=== PATIENT | female | born 1955 | race Caucasian/White ===

== ENCOUNTER 2017-10-11 16:27 | Inpatient (IN) | payer MEDICAID ==
[2017-10-11] MEDS: SODIUM CHLORIDE 0.9% FLUSH 10 ML SOL IV PRN ×2 (16:45→19:42)
[2017-10-11] MEDS ORDERED: SODIUM CHLORIDE 0.9% 1000ML 1,000 ML IV ONE (16:49)
[2017-10-11 17:04] LABS: ALBUMIN 3.8 gm/dl (3.4-5.0); CALCIUM 9.8 mg/dl (8.5-10.1); MAGNESIUM 1.9 mg/dl (1.8-2.4); POTASSIUM 4.2 mMol/L (3.5-5.1)
[2017-10-11 17:07] LABS: AMPHETAMINES NEGATIVE (NEGATIVE); METHADONE NEGATIVE (NEGATIVE); OPIATES(OP13) NEGATIVE (NEGATIVE); OXYCODONE(OXY) POSITIVE (NEGATIVE); PROPOXYPHENE(PPX) NEGATIVE (NEGATIVE); TRICYCLIC ANTIDEPRESSANTS NEGATIVE (NEGATIVE)
[2017-10-11 17:10] LABS: BASOPHILS % (AUTO) 2 % (0-3); EOSINOPHILS % (AUTO) 3 % (0-9); HEMATOCRIT 44 % (35-47); MEAN CORPUSCULAR HGB CONC 34.3 gm/dl (32.0-36.0); MONOCYTES % (AUTO) 5.9 % (0-12); NEUTROPHILS % (AUTO) 58.5 % (37-80)
[2017-10-11 17:14] LABS: MEAN CORPUSCULAR VOLUME 100 fL (81-99)
[2017-10-11] MEDS ORDERED: ACETYLCYSTEINE 20% SOL ONE ×2 (17:26→17:32)
[2017-10-11] MEDS ORDERED: ONDANSETRON HCL 4 MG/2 ML SOL IV ONE (17:31)
[2017-10-11] MEDS ORDERED: ACETYLCYSTEINE 20% SOL PO ONE ×2 (17:31)
[2017-10-11] MEDS ORDERED: ONDANSETRON HCL 4 MG/2 ML SOL ONE (17:32)
[2017-10-11] MEDS ORDERED: ONDANSETRON HCL 4 MG/2 ML SOL IV PRN (18:27)
[2017-10-11] MEDS: VENLAFAXINE HCL 150 MG CER PO SCH (18:57)
[2017-10-11] MEDS ORDERED: POTASSIUM CHLORIDE 2 MEQ/ML SOL IV ONE (19:36)
[2017-10-11] MEDS: POTASSIUM CHLORIDE IV SCH (19:41)
[2017-10-11] MEDS: SODIUM CHLORIDE IV SCH (19:41)
[2017-10-11] MEDS: KETOROLAC TROMETHAMINE 30 MG/ML SOL IV PRN ×2 (19:42→23:53)
[2017-10-11] MEDS ORDERED: RANITIDINE HCL 150 MG TAB PO SCH (21:00)
[2017-10-11] MEDS: ACETYLCYSTEINE 20% SOL PO SCH (21:52)
[2017-10-11] MEDS: BUPROPION 150 MG PO SCH (22:27)
[2017-10-12] MEDS: ACETYLCYSTEINE 20% SOL PO SCH ×6 (02:01→21:59)
[2017-10-12] MEDS: KETOROLAC TROMETHAMINE 30 MG/ML SOL IV PRN ×5 (04:09→20:48)
[2017-10-12] MEDS: POTASSIUM CHLORIDE IV SCH (05:51)
[2017-10-12] MEDS: SODIUM CHLORIDE IV SCH (05:51)
[2017-10-12] MEDS ORDERED: POTASSIUM CHLORIDE 2 MEQ/ML SOL IV ONE (05:51)
[2017-10-12] MEDS: FAMOTIDINE 20 MG TAB PO SCH ×2 (06:01→16:32)
[2017-10-12] MEDS: SODIUM CHLORIDE 0.9% FLUSH 10 ML SOL IV PRN ×4 (08:21→20:52)
[2017-10-12] MEDS: PANTOPRAZOLE SODIUM 40 MG ECT PO SCH (08:37)
[2017-10-12] MEDS: VENLAFAXINE HCL 150 MG CER PO SCH (08:37)
[2017-10-12] MEDS: LISINOPRIL 20 MG TAB PO SCH (10:34)
[2017-10-12] MEDS: BUPROPION 150 MG PO SCH ×2 (12:04→20:48)
[2017-10-12 13:53] LABS: ALBUMIN 3.1 gm/dl (3.4-5.0); ALT 21 IU/L (14-63); BILIRUBIN,DIRECT 0.1 mg/dl (0.0-0.2)
[2017-10-13] MEDS: KETOROLAC TROMETHAMINE 30 MG/ML SOL IV PRN ×3 (00:55→09:57)
[2017-10-13 01:01] VITALS: O2SAT 99
[2017-10-13] MEDS: ACETYLCYSTEINE 20% SOL PO SCH ×2 (01:13→05:46)
[2017-10-13] MEDS: FAMOTIDINE 20 MG TAB PO SCH (06:00)
[2017-10-13 08:04] LABS: ALBUMIN 3.2 gm/dl (3.4-5.0); CALCIUM 9.1 mg/dl (8.5-10.1); POTASSIUM 3.8 mMol/L (3.5-5.1)
[2017-10-13 08:06] LABS: BASOPHILS % (AUTO) 1 % (0-3); EOSINOPHILS % (AUTO) 1 % (0-9); HEMATOCRIT 40 % (35-47); MEAN CORPUSCULAR HGB CONC 35.7 gm/dl (32.0-36.0); MEAN CORPUSCULAR VOLUME 98 fL (81-99); MONOCYTES % (AUTO) 7.6 % (0-12); NEUTROPHILS % (AUTO) 63.8 % (37-80)
[2017-10-13] MEDS: VENLAFAXINE HCL 150 MG CER PO SCH (08:14)
[2017-10-13] MEDS: PANTOPRAZOLE SODIUM 40 MG ECT PO SCH (08:15)
[2017-10-13] MEDS: BUPROPION 150 MG PO SCH (08:16)
[2017-10-13] MEDS: LISINOPRIL 20 MG TAB PO SCH (08:16)
[2017-10-13 08:33] LABS: ANISOCYTOSIS SLIGHT AMT
[2017-10-13 08:37] VITALS: BP 165/79; PULSE 60; RESP 18; TEMP 98.1
[2017-10-13] MEDS ORDERED: FLUTICASONE PROPIONATE SPR NAS SCH (09:00)
[2017-10-13] MEDS ORDERED: INFLUENZA VIRUS VACCINE 0.5 ML SUS IM ONE (09:18)
== END 2017-10-13 10:00 | disposition home or self-care (01) | DRG 918 ==
LOC: ED 16:27 → UNDOADMIN 18:19 → ACUTE CARE 18:19
PROVIDERS: ADMIT Family Medicine; ATTEND Family Medicine
DX: T39.1X1A Poisoning by 4-Aminophenol derivatives, accidental (unintentional), initial encounter (principal); F32.9 Major depressive disorder, single episode, unspecified; R10.11 Right upper quadrant pain; R10.12 Left upper quadrant pain; R10.13 Epigastric pain; R51 Headache; R10.32 Left lower quadrant pain
CPT/HCPCS: 74020; 74177; 80053; 80076; 80305; 80307; 83735; 84100; 85025; 85610; 90686; 93005; 93012; 99285; J1885; J2405; J3480; J7608; Q9967; G0008

== ENCOUNTER 2017-11-30 16:31 | Emergency (ER) | payer MEDICAID ==
[2017-11-30 16:31] VITALS: O2SAT 99
[2017-11-30] MEDS ORDERED: TRAMADOL HYDROCHLORIDE 50 MG TAB PO ONE (17:08)
[2017-11-30] MEDS ORDERED: TRAMADOL HYDROCHLORIDE 50 MG TAB ONE (17:22)
[2017-11-30 18:04] VITALS: BP 154/99; PULSE 71; RESP 18; TEMP 97.5
== END 2017-11-30 18:25 | disposition home or self-care (01) | DRG 605 ==
LOC: ED 16:31
DX: S80.02XA Contusion of left knee, initial encounter (principal); Z96.652 Presence of left artificial knee joint; W20.8XXA Other cause of strike by thrown, projected or falling object, initial encounter
CPT/HCPCS: 73562; 99282; A9270-GY

== ENCOUNTER 2017-12-26 12:06 | Emergency (ER) | payer MEDICAID ==
[2017-12-26 12:47] VITALS: RESP 20
[2017-12-26 14:51] LABS: BASOPHILS % (AUTO) 1 % (0-3); EOSINOPHILS % (AUTO) 3 % (0-9); HEMATOCRIT 41 % (35-47); MEAN CORPUSCULAR HGB CONC 34.4 gm/dl (32.0-36.0); MONOCYTES % (AUTO) 5.6 % (0-12); NEUTROPHILS % (AUTO) 58.6 % (37-80)
[2017-12-26 14:56] VITALS: TEMP 97.9; O2SAT 99
[2017-12-26 14:56] LABS: CALCIUM 9.9 mg/dl (8.5-10.1); POTASSIUM 4.5 mMol/L (3.5-5.1)
[2017-12-26 15:14] LABS: MEAN CORPUSCULAR VOLUME 102 fL (81-99)
[2017-12-26 15:15] LABS: ANISOCYTOSIS SLIGHT AMT
[2017-12-26 15:33] VITALS: BP 156/84; PULSE 61
[2017-12-26] MEDS ORDERED: APAP/HYDROCODONE 325/5 TAB PO ONE (15:40)
[2017-12-26] MEDS ORDERED: APAP/HYDROCODONE 325/5 TAB ONE (15:46)
== END 2017-12-26 16:08 | disposition home or self-care (01) | DRG 301 ==
LOC: ED 12:06
DX: I82.442 Acute embolism and thrombosis of left tibial vein (principal); M25.562 Pain in left knee; Z98.84 Bariatric surgery status; Z96.652 Presence of left artificial knee joint; Z91.81 History of falling
CPT/HCPCS: 36415; 80048; 85025; 85378; 85610; 99284; A9270-GY

== ENCOUNTER 2018-02-10 14:48 | Emergency (ER) | payer OTHER ==
[2018-02-10 15:15] VITALS: RESP 20; TEMP 97.3; O2SAT 97
[2018-02-10 15:57] VITALS: BP 189/98; PULSE 54
== END 2018-02-10 15:50 | disposition home or self-care (01) | DRG 552 ==
LOC: ED 14:48
DX: M43.6 Torticollis (principal)
CPT/HCPCS: 99283

== ENCOUNTER 2018-05-06 14:56 | Emergency (ER) | payer OTHER ==
[2018-05-06 15:12] VITALS: RESP 22; TEMP 95.5
[2018-05-06 17:05] VITALS: BP 156/84; PULSE 64; O2SAT 99
== END 2018-05-06 17:10 | disposition home or self-care (01) | DRG 605 ==
LOC: ED 14:56
DX: S90.122A Contusion of left lesser toe(s) without damage to nail, initial encounter (principal)
CPT/HCPCS: 73660; 99282; 99283

== ENCOUNTER 2018-05-13 17:37 | Emergency (ER) | payer OTHER ==
[2018-05-13] MEDS ORDERED: ALBUTEROL/IPRATROPIUM 1 VIAL SOL ONE (17:53)
[2018-05-13 17:56] LABS: ABG PH 7.72 (7.35-7.45)
[2018-05-13] MEDS ORDERED: SOLUMEDROL 125 MG/2 ML 125 MG/2 ML PDS IV ONE (17:59)
[2018-05-13] MEDS ORDERED: ALBUTEROL/IPRATROPIUM 1 VIAL SOL INH ONE (17:59)
[2018-05-13 18:01] LABS: HEMATOCRIT 53 % (35-47); HEMOGLOBIN 17.8 gm/dl (12.0-15.5); MEAN CORPUSCULAR HGB CONC 33.6 gm/dl (32.0-36.0); MEAN CORPUSCULAR VOLUME 98 fL (81-99)
[2018-05-13] MEDS ORDERED: LORAZEPAM 2 MG/ML 10ML MDV 2 MG/ML VIAL IV ONE (18:01)
[2018-05-13] MEDS ORDERED: SOLUMEDROL 125 MG/2 ML 125 MG/2 ML PDS ONE (18:05)
[2018-05-13] MEDS ORDERED: LORAZEPAM 2 MG/ML SOL ONE (18:05)
[2018-05-13 18:21] LABS: ALBUMIN 4.3 gm/dl (3.4-5.0); BILIRUBIN,TOTAL 0.4 mg/dl (0.2-1.0); CALCIUM 10.9 mg/dl (8.5-10.1); CARBON DIOXIDE 26.4 mEq/L (21-32); CREATININE 0.74 mg/dl (0.60-1.00); POTASSIUM 4.1 mMol/L (3.5-5.1); TOTAL PROTEIN 8.1 gm/dl (6.4-8.2)
[2018-05-13 18:44] LABS: ANISOCYTOSIS SLIGHT; BAND NEUTROPHILS % (MANUAL) 1 %; BASOPHILS % (MANUAL) 0 % (0-3); EOSINOPHILS % (MANUAL) 0 % (0-9); LYMPHOCYTES % (MANUAL) 29 % (10-50); MONOCYTES % (MANUAL) 7 % (0-12); NEUTROPHILS % (MANUAL) 63 % (37-80)
[2018-05-13 19:52] VITALS: RESP 20
[2018-05-13] MEDS ORDERED: HYDROMORPHONE HCL 2 MG/ML SOL IV ONE (20:22)
[2018-05-13] MEDS ORDERED: HYDROMORPHONE 1 MG/ML SYRINGE ONE (20:25)
[2018-05-13 21:08] VITALS: BP 155/69; PULSE 62; TEMP 97.3; O2SAT 95
== END 2018-05-13 21:20 | disposition home or self-care (01) | DRG 204 ==
LOC: ED 17:37
DX: R06.00 Dyspnea, unspecified (principal); R06.02 Shortness of breath; R07.9 Chest pain, unspecified; R05 Cough; I10 Essential (primary) hypertension; Z72.0 Tobacco use
CPT/HCPCS: 36600; 71045; 71275; 80053; 82803; 83880; 84484; 85007; 85027; 85378; 93005; 96374; 96375; 99285; 99291; J2060; J2930; Q9967; J1170

== ENCOUNTER 2018-06-21 14:08 | Emergency (ER) | payer OTHER ==
[2018-06-21 14:30] VITALS: BP 194/91; PULSE 81; RESP 16; TEMP 98.3; O2SAT 98
[2018-06-21] MEDS ORDERED: KETOROLAC TROMETHAMINE 30 MG/ML SOL IM ONE (14:32)
[2018-06-21] MEDS ORDERED: KETOROLAC TROMETHAMINE 30 MG/ML SOL ONE (14:34)
== END 2018-06-21 14:55 | disposition home or self-care (01) | DRG 605 ==
LOC: ED 14:08
DX: S60.221A Contusion of right hand, initial encounter (principal)
CPT/HCPCS: 96372; 99282; 99283; J1885

== ENCOUNTER 2018-09-13 11:29 | Emergency (ER) | payer OTHER ==
[2018-09-13 11:29] VITALS: O2SAT 98
[2018-09-13 11:58] VITALS: BP 149/80; PULSE 84; RESP 14; TEMP 97.7
[2018-09-13] MEDS ORDERED: ACETAMI/HYDROCO 325/10 TAB PO ONE (12:29)
[2018-09-13] MEDS ORDERED: APAP/HYDROCODONE 1 EACH TABLET ONE (12:34)
[2018-09-13 13:18] LABS: ALBUMIN 3.6 gm/dl (3.4-5.0); BILIRUBIN,TOTAL 0.2 mg/dl (0.2-1.0); CALCIUM 10.4 mg/dl (8.5-10.1); CARBON DIOXIDE 27.5 mEq/L (21-32); CREATININE 0.72 mg/dl (0.60-1.00); POTASSIUM 4.2 mMol/L (3.5-5.1); TOTAL PROTEIN 7.1 gm/dl (6.4-8.2)
[2018-09-13 14:17] LABS: APPEARANCE,URINE Clear; BILIRUBIN,URINE NEGATIVE (NEGATIVE); COLOR,URINE Yellow; GLUCOSE, URINE (UA) NEGATIVE (NEGATIVE); KETONES,URINE NEGATIVE (NEGATIVE); LEUKOCYTE ESTERASE ,URINE NEGATIVE (NEGATIVE); NITRATE,URINE NEGATIVE (NEGATIVE); OCCULT BLOOD,URINE TRACE LYSED (NEG-TRACE); PH,URINE 5.5; UROBILINOGEN,URINE 0.2 (0.2-1.0 EU)
[2018-09-13 14:41] LABS: BACTERIA TRACE (< 1+); CRYSTALS NEGATIVE (0-3 AVE/HPF); EPITHELIAL CELLS 0-5 (SQUAMOUS); RBC,URINE 0-2 (0-3AV/HPF); WBC,URINE 0-1 (0-5AV/HPF)
== END 2018-09-13 14:26 | disposition home or self-care (01) | DRG 103 ==
LOC: ED 11:29
DX: G44.209 Tension-type headache, unspecified, not intractable (principal)
CPT/HCPCS: 36415; 70450; 80053; 81001; 99283; 99284; A9270-GY

== ENCOUNTER 2018-11-24 20:12 | Emergency (ER) | payer OTHER ==
[2018-11-24 20:13] VITALS: O2SAT 98
[2018-11-24 21:00] VITALS: BP 144/95; PULSE 82; RESP 20; TEMP 97
[2018-11-24] MEDS ORDERED: TRAMADOL HYDROCHLORIDE 50 MG TAB PO ONE ×2 (21:16→21:20)
[2018-11-24] MEDS ORDERED: TRAMADOL HYDROCHLORIDE 50 MG TAB ONE (21:21)
== END 2018-11-24 21:40 | disposition home or self-care (01) | DRG 605 ==
LOC: ED 20:12
DX: S60.211A Contusion of right wrist, initial encounter (principal); W20.8XXA Other cause of strike by thrown, projected or falling object, initial encounter
CPT/HCPCS: 73110; 99282; 99283; A9270-GY

== ENCOUNTER 2019-03-15 13:28 | Emergency (ER) | payer OTHER ==
[2019-03-15 14:18] VITALS: RESP 16; TEMP 98
[2019-03-15] MEDS ORDERED: APAP/HYDROCODONE 1 EACH TABLET PO ONE (14:53)
[2019-03-15] MEDS ORDERED: APAP/HYDROCODONE 1 EACH TABLET ONE (15:09)
[2019-03-15] MEDS ORDERED: LIDOCAINE 5% PATCH 1 PATCH TDM TOP ONE (15:11)
[2019-03-15 15:41] VITALS: BP 137/83; PULSE 67; O2SAT 96
[2019-03-16] MEDS ORDERED: LIDOCAINE 4% CREAM TP ONE (14:57)
== END 2019-03-15 16:22 | disposition home or self-care (01) | DRG 552 ==
LOC: ED 13:28
DX: M54.2 Cervicalgia (principal); S16.1XXA Strain of muscle, fascia and tendon at neck level, initial encounter
CPT/HCPCS: 99282; 99283; A9270-GY